=== PATIENT | male | born 1955 | race Caucasian/White ===

== ENCOUNTER 2019-10-27 17:27 | Emergency (ER) | payer SELFPAY ==
[~2019-10-27] VITALS: Ht 180.3 cm; Wt 104.0 kg
[2019-10-27 18:04] VITALS: BP 162/96
--- NOTE | 2019-10-27 18:52 | NUR ---
SPLINTER TO LEFT MIDDLE FINGER X2 HOURS. PT UNABLE TO TAKE OUT HIMSELF.
== END 2019-10-27 19:12 | disposition home or self-care (01) ==
LOC: ED 18:30
DX: S61.233A Puncture wound without foreign body of left middle finger without damage to nail, initial encounter (principal); X58.XXXA Exposure to other specified factors, initial encounter; Y93.89 Activity, other specified; Y92.098 Other place in other non-institutional residence as the place of occurrence of the external cause; Y99.8 Other external cause status
CPT/HCPCS: 99281

== ENCOUNTER 2021-04-15 01:24 | Inpatient (IN) | payer MEDICAID ==
[2021-04-15] VITALS (12 sets, daily range): BP systolic 98–139; BP diastolic 59–96
[~2021-04-15] VITALS: Ht 177.8 cm; Wt 84.2 kg
--- NOTE | 2021-04-15 01:24 | NUR ---
EVERTON EDOUARD HELD AT THIS TIME PER DR DE LA ROSA
--- NOTE | 2021-04-15 01:29 | NUR ---
PER VERBAL FROM DR DE LA ROSA PT GIVEN 2G CALCIUM IV AT THIS TIME
[2021-04-15] MEDS ORDERED: SODIUM BICARB 8.4%, 50ML SYRINGE IVPush ONE ×2 (01:30→03:00)
[2021-04-15] MEDS ORDERED: SODIUM CHLORIDE 0.9% 1,000 ML IV ONE ×2 (01:30→03:00)
[2021-04-15] MEDS ORDERED: CALCIUM CHLORIDE 10%, 10ML SYR IVPush ONE (01:30)
[2021-04-15] MEDS ORDERED: PROMETHAZINE 25 MG/ML, 1ML IM ONE (01:30)
[2021-04-15] MEDS ORDERED: DEXTROSE 50%, 50ML SYRINGE IVPush ONE (01:30)
[2021-04-15] MEDS ORDERED: SODIUM CHLORIDE FLUSH 10ML SYR IVF ONE (01:30)
[2021-04-15] MEDS ORDERED: INSULIN REGULAR 100 UNITS/ML, 3ML VIAL IVPush ONE (01:30)
[2021-04-15] MEDS ORDERED: SODIUM CHLORIDE 0.9% 1,000ML IVBOLUS ONE ×3 (01:30→03:00)
[2021-04-15] MEDS ORDERED: PROMETHAZINE 25 MG/ML, 1ML ONE (01:35)
[2021-04-15 01:43] LABS: BASOPHILS % (AUTO) 0 % (0-1); EOSINOPHILS % (AUTO) 0 % (1-7); LYMPHOCYTES % (AUTO) 5 % (22-44); MEAN CORPUSCULAR HEMOGLOBIN 32.4 pg (27.5-34.5); MEAN PLATELET VOLUME 9.8 fL (7.4-10.4); MONOCYTES % (AUTO) 3 % (2-9); NEUTROPHILS % (AUTO) 91 % (42-75); PLATELET COUNT 237 x10^3/uL (130-400); RED BLOOD COUNT 2.18 x10^6/uL (4.38-5.82); RED CELL DISTRIBUTION WIDTH 14.1 % (9.4-14.8)
--- NOTE | 2021-04-15 01:51 | NUR ---
MIJARES INSERTED STERILE TECHNIQUE MAINTAINED, URINE DRAINING AT THIS TIME. XRAY TO BEDSIDE
[2021-04-15 01:56] LABS: ALANINE AMINOTRANSFERASE 14 U/L (12-78); ALBUMIN 3.7 g/dL (3.4-5.0); ANION GAP 22 mmol/L (5-15); CALCIUM 8.8 mg/dL (8.5-10.1); CHLORIDE 106 mmol/L (98-107)
--- NOTE | 2021-04-15 01:59 | NUR ---
THIS IS A 65M BIB EMS FROM HOME FOR SOB, PT HAD SYNCOPAL EPISODE WITH EMS PRIOR TO TRANSPORT. PT FOUND TO BE JUNCTIONAL TAMI PER EMS THEN CONVERTED INTO VTACH AT A RATE OF 180-200. UPON ARRIVAL PT WAS ON AMIO GTT. ERP TO BEDSIDE UPON ARRIVAL. AMIO DC PT TO BE GIVEN 2G OF CALCIUM IV. PT HAD TWO EPISODES OF VOMITING PER ERP PT GIVEN 25MG PHENERGAN IM. PT CONNECTED TO ALL MONITORING, PT A/OX4. FAMILY NOTIFIED PER PT REQUEST.
[2021-04-15] MEDS ORDERED: DEXTROSE 50%, 50ML SYRINGE ONE (02:00)
[2021-04-15] MEDS ORDERED: SODIUM BICARB 8.4%, 50ML SYRINGE ONE ×2 (02:01→03:02)
[2021-04-15] MEDS ORDERED: INSULIN SINGLE DOSE, ER ONE (02:03)
[2021-04-15 02:07] LABS: ALKALINE PHOSPHATASE 75 U/L (45-117); BILIRUBIN,TOTAL 0.4 mg/dL (0.2-1.0); T4 (THYROXINE) 4.1 mcg/dL (4.5-12.1); TOTAL PROTEIN 8.4 g/dL (6.4-8.2); TROPONIN I 0.075 ng/mL (0.000-0.045)
--- NOTE | 2021-04-15 02:15 | NUR ---
assumed care of pt. report from Chelsy DUVAL pt here for weakness, syncope and difficulty urinating. pt reports that the last time that he was able to urinate was earlier today and it was a very little bit. pt reports that she has not had a BM in about 1 week pt is anxious and agitated. restless. pale. tachypneic. pt has a rash with scabbing to anterior and posterior trunk. mucous membranes very dry no family at bedside
[2021-04-15] MEDS ORDERED: MORPHINE SULFATE 4 MG/ML, 1ML ONE (02:16)
[2021-04-15] MEDS: MORPHINE SULFATE 4 MG/ML, 1ML IVPush PRN ×2 (02:20→05:46)
[2021-04-15] MEDS ORDERED: LIDOCAINE 2%,20 ML JEL.PF.APP MM ONE ×2 (02:27→02:30)
--- NOTE | 2021-04-15 02:33 | NUR ---
Dr Stewart has been to bedside for rectal exam
[2021-04-15 02:38] LABS: MICROSCOPIC INDICATED
--- NOTE | 2021-04-15 02:52 | NUR ---
clean dry linens have been applied. pt placed on waffle mattress for comfort. warm blankets placed for comfort pt to have central line placed. consent obtained
--- NOTE | 2021-04-15 02:59 | NUR ---
Dr Stewart at bedside for recheck. pt to have temporary dialysis cath placed
[2021-04-15] MEDS ORDERED: CEFTRIAXONE 1,000 MG in DEXTROSE 5% 50 ML IVPB ONE (03:00)
[2021-04-15] MEDS ORDERED: LIDOCAINE-MPF 1%, 5ML ONE (03:02)
--- NOTE | 2021-04-15 03:10 | NUR ---
lab at bedside to draw BC
--- NOTE | 2021-04-15 03:24 | NUR ---
Dr Stewart at bedside for temporary dilaysis cath placement
[2021-04-15] MEDS ORDERED: SODIUM BICARBONATE 8.4% 150 MEQ in DEXTROSE 5% 1,000 ML IV SCH (03:30)
--- NOTE | 2021-04-15 03:42 | NUR ---
[facility] [phone]
--- NOTE | 2021-04-15 04:02 | NUR ---
dilaysis cath placement complete. well tolerated by pt Dr Quigley has been to bedside for evaluation repeat EKG at bedside
--- NOTE | 2021-04-15 04:11 | NUR ---
bed assignment has been recieved, attempting to call report
--- NOTE | 2021-04-15 04:27 | NUR ---
report has been called to Hortensia DUVAL. awaiting STAT KUB at bedside to confirm placement of dialysis cath prior to transfer to CCU
--- NOTE | 2021-04-15 04:33 | NUR ---
rocephin to continue infusing on admit
--- NOTE | 2021-04-15 04:33 | NUR ---
x-ray at bedside
--- NOTE | 2021-04-15 04:38 | NUR ---
placement of dialysis cath verified at bedside by Dr. Stewart
[2021-04-15] MEDS ORDERED: PHARMACY MAY ADJ FOR RENAL FX MC PRN (06:00)
[2021-04-15] MEDS: SODIUM BICARBONATE 8.4% 150 MEQ in DEXTROSE 5% 1,000 ML IV SCH ×3 (06:00→18:12)
[2021-04-15] MEDS ORDERED: ACETAMINOPHEN 325 MG TABLET PO PRN (06:00)
[2021-04-15] MEDS ORDERED: LABETALOL 5MG/ML, 20ML IVPush PRN (06:00)
[2021-04-15] MEDS ORDERED: morphine SULFATE 10 MG/ML, 1ML IVPush PRN (06:00)
[2021-04-15 07:34] LABS: CREATINE KINASE, TOTAL 319 U/L (39-308); TROPONIN I 0.096 ng/mL (0.000-0.045)
[2021-04-15 08:10] LABS: CHLORIDE,URINE RANDOM 72 mmol/L; POTASSIUM,URINE RANDOM 26 mmol/L; SODIUM,URINE RANDOM 74 mmol/L
[2021-04-15] MEDS: CEFTRIAXONE 2 GM in DEXTROSE 5% 50 ML IVPB SCH (08:15)
[2021-04-15] MEDS: SENNA/DOCUSATE TABLET PO SCH (09:00)
[2021-04-15 12:27] LABS: ANION GAP 18 mmol/L (5-15); CALCIUM 7.1 mg/dL (8.5-10.1); CHLORIDE 99 mmol/L (98-107)
[2021-04-15 12:31] LABS: MEAN CORPUSCULAR HEMOGLOBIN 31.5 pg (27.5-34.5); MEAN CORPUSCULAR HGB CONC 34.2 g/dL (33.2-36.2); MEAN PLATELET VOLUME 9.4 fL (7.4-10.4); PLATELET COUNT 191 x10^3/uL (130-400); RED BLOOD COUNT 1.76 x10^6/uL (4.38-5.82); RED CELL DISTRIBUTION WIDTH 11.9 % (9.4-14.8)
[2021-04-15] MEDS ORDERED: SODIUM CHLORIDE 0.9% 250 ML IV ONE (13:00)
[2021-04-15] MEDS ORDERED: LIDOCAINE 1%, 20ML ONE (13:50)
[2021-04-15] MEDS ORDERED: ONDANSETRON 2MG/ML, 2ML ONE (14:35)
[2021-04-15] MEDS ORDERED: FLUMAZENIL 0.1 MG/1 ML, 5ML ONE (14:55)
[2021-04-15] MEDS ORDERED: NALOXONE 1 MG/ML, 2ML ONE (14:55)
[2021-04-15] MEDS ORDERED: MIDAZOLAM 1 MG/ML, 5ML ONE (14:55)
[2021-04-15] MEDS ORDERED: FENTANYL PF 100 MCG/2ML ONE (14:55)
[2021-04-15] MEDS: ONDANSETRON 2MG/ML, 2ML IVPush PRN (20:19)
[2021-04-16 01:53] VITALS: BP 128/73
[2021-04-16 01:59] VITALS: BP 131/65
[2021-04-16] MEDS: ONDANSETRON 2MG/ML, 2ML IVPush PRN ×2 (02:44→15:44)
[2021-04-16] MEDS: SODIUM BICARBONATE 8.4% 150 MEQ in DEXTROSE 5% 1,000 ML IV SCH (02:44)
[2021-04-16 08:09] LABS: ALBUMIN 2.9 g/dL (3.4-5.0); ANION GAP 12 mmol/L (5-15); BASOPHILS % (AUTO) 0 % (0-1); CHLORIDE 95 mmol/L (98-107); EOSINOPHILS % (AUTO) 0 % (1-7); LYMPHOCYTES % (AUTO) 5 % (22-44); MEAN CORPUSCULAR HEMOGLOBIN 31.6 pg (27.5-34.5); MEAN CORPUSCULAR HGB CONC 35.3 g/dL (33.2-36.2); MEAN PLATELET VOLUME 9.5 fL (7.4-10.4); MONOCYTES % (AUTO) 9 % (2-9); NEUTROPHILS % (AUTO) 86 % (42-75); PLATELET COUNT 173 x10^3/uL (130-400); RED BLOOD COUNT 2.44 x10^6/uL (4.38-5.82); RED CELL DISTRIBUTION WIDTH 13.4 % (9.4-14.8)
[2021-04-16] MEDS: CEFTRIAXONE 2 GM in DEXTROSE 5% 50 ML IVPB SCH (08:09)
[2021-04-16] MEDS: SENNA/DOCUSATE TABLET PO SCH (08:09)
[2021-04-16 08:12] LABS: ALANINE AMINOTRANSFERASE 24 U/L (12-78); ALKALINE PHOSPHATASE 131 U/L (45-117); BILIRUBIN,TOTAL 0.8 mg/dL (0.2-1.0); TOTAL PROTEIN 6.2 g/dL (6.4-8.2)
[2021-04-16 08:21] LABS: CALCIUM 5.6 mg/dL (8.5-10.1)
[2021-04-16 10:22] VITALS: BP 136/70
[2021-04-16] MEDS ORDERED: MAGNESIUM SULFATE PMX 2GM/50ML 50 ML IV ONE (12:30)
[2021-04-16] MEDS: CALCITRIOL 0.25 MCG CAPSULE PO SCH (12:54)
[2021-04-16] MEDS: ERGOCALCIFEROL 50,000 UNIT CAPSULE PO SCH (12:54)
[2021-04-16] MEDS: POTASSIUM CHLORIDE 20 MEQ in SODIUM CHLORIDE 0.9% 250 ML IV SCH (13:44)
[2021-04-16 17:15] VITALS: BP 145/88
[2021-04-16 19:45] VITALS: BP 166/87
[2021-04-17 01:04] VITALS: BP 163/87
[2021-04-17] MEDS: POTASSIUM CHLORIDE 20 MEQ in SODIUM CHLORIDE 0.9% 250 ML IV SCH (01:06)
[2021-04-17 05:07] LABS: BASOPHILS % (AUTO) 0 % (0-1); EOSINOPHILS % (AUTO) 1 % (1-7); LYMPHOCYTES % (AUTO) 5 % (22-44); MEAN PLATELET VOLUME 9.8 fL (7.4-10.4); MONOCYTES % (AUTO) 12 % (2-9); NEUTROPHILS % (AUTO) 81 % (42-75); PLATELET COUNT 156 x10^3/uL (130-400); RED CELL DISTRIBUTION WIDTH 13.4 % (9.4-14.8)
[2021-04-17 05:10] LABS: ALBUMIN 2.8 g/dL (3.4-5.0); ANION GAP 5 mmol/L (5-15); CALCIUM 6.7 mg/dL (8.5-10.1); CHLORIDE 107 mmol/L (98-107); CREATININE 9.65 mg/dL (0.7-1.3)
[2021-04-17] MEDS: CALCITRIOL 0.25 MCG CAPSULE PO SCH (07:46)
[2021-04-17] MEDS: CEFTRIAXONE 2 GM in DEXTROSE 5% 50 ML IVPB SCH (07:47)
[2021-04-17] MEDS: POLYETHYLENE GLYCOL 17 GM PACKET PO PRN (07:47)
[2021-04-17] MEDS: SENNA/DOCUSATE TABLET PO SCH (07:47)
[2021-04-17 08:17] VITALS: BP 164/84
[2021-04-17 15:14] VITALS: BP 165/87
[2021-04-17 19:34] VITALS: BP 168/83
[2021-04-18 01:59] VITALS: BP 154/78
[2021-04-18 06:22] LABS: BASOPHILS % (AUTO) 0 % (0-1); EOSINOPHILS % (AUTO) 7 % (1-7); LYMPHOCYTES % (AUTO) 8 % (22-44); MEAN CORPUSCULAR HEMOGLOBIN 31.3 pg (27.5-34.5); MEAN CORPUSCULAR HGB CONC 33.8 g/dL (33.2-36.2); MEAN PLATELET VOLUME 10.1 fL (7.4-10.4); MONOCYTES % (AUTO) 11 % (2-9); NEUTROPHILS % (AUTO) 74 % (42-75); PLATELET COUNT 157 x10^3/uL (130-400); RED BLOOD COUNT 2.75 x10^6/uL (4.38-5.82); RED CELL DISTRIBUTION WIDTH 13.2 % (9.4-14.8)
[2021-04-18 06:30] LABS: ANION GAP 7 mmol/L (5-15); CHLORIDE 104 mmol/L (98-107)
[2021-04-18 07:50] VITALS: BP 165/86
[2021-04-18] MEDS: POLYETHYLENE GLYCOL 17 GM PACKET PO PRN (12:01)
[2021-04-18] MEDS: SENNA/DOCUSATE TABLET PO SCH (12:01)
[2021-04-18] MEDS: CALCITRIOL 0.25 MCG CAPSULE PO SCH (12:01)
[2021-04-18] MEDS: CEFTRIAXONE 2 GM in DEXTROSE 5% 50 ML IVPB SCH (12:04)
[2021-04-18 12:58] VITALS: BP 151/87
[2021-04-18] MEDS ORDERED: PROMETHAZINE 25 MG/ML, 1ML IM PRN (13:30)
[2021-04-18] MEDS: MECLIZINE 25 MG TABLET PO SCH ×2 (16:32→21:48)
[2021-04-18 19:35] VITALS: BP 156/84
[2021-04-19 01:18] VITALS: BP 146/78
[2021-04-19 05:13] LABS: ALBUMIN 2.9 g/dL (3.4-5.0); ANION GAP 7 mmol/L (5-15); CALCIUM 7.2 mg/dL (8.5-10.1); CHLORIDE 105 mmol/L (98-107); CREATININE 9.53 mg/dL (0.7-1.3)
[2021-04-19 07:57] VITALS: BP 153/86
[2021-04-19] MEDS: MECLIZINE 25 MG TABLET PO SCH ×3 (08:21→20:02)
[2021-04-19] MEDS: POLYETHYLENE GLYCOL 17 GM PACKET PO PRN (08:21)
[2021-04-19] MEDS: SENNA/DOCUSATE TABLET PO SCH (08:21)
[2021-04-19] MEDS: CALCITRIOL 0.25 MCG CAPSULE PO SCH (08:21)
[2021-04-19] MEDS: CEFTRIAXONE 2 GM in DEXTROSE 5% 50 ML IVPB SCH (12:18)
[2021-04-19 13:45] VITALS: BP 126/86
[2021-04-19] MEDS: CALCIUM ACETATE 667 MG CAPSULE PO SCH ×2 (16:35→20:02)
[2021-04-19 19:44] VITALS: BP 117/78
[2021-04-20 01:20] VITALS: BP 146/82
[2021-04-20 05:12] LABS: BASOPHILS % (AUTO) 1 % (0-1); EOSINOPHILS % (AUTO) 14 % (1-7); LYMPHOCYTES % (AUTO) 17 % (22-44); MEAN CORPUSCULAR HEMOGLOBIN 31.3 pg (27.5-34.5); MEAN CORPUSCULAR HGB CONC 33.6 g/dL (33.2-36.2); MONOCYTES % (AUTO) 9 % (2-9); NEUTROPHILS % (AUTO) 60 % (42-75); PLATELET COUNT 170 x10^3/uL (130-400); RED BLOOD COUNT 2.83 x10^6/uL (4.38-5.82); RED CELL DISTRIBUTION WIDTH 12.7 % (9.4-14.8)
[2021-04-20 05:21] LABS: CHLORIDE 103 mmol/L (98-107)
[2021-04-20 05:27] LABS: ANION GAP 12 mmol/L (5-15); CALCIUM 7.5 mg/dL (8.5-10.1)
[2021-04-20] MEDS: BISACODYL 10 MG SUPP PR PRN (05:28)
[2021-04-20] MEDS: POLYETHYLENE GLYCOL 17 GM PACKET PO PRN (05:28)
[2021-04-20 08:05] VITALS: BP 132/84
[2021-04-20] MEDS: SENNA/DOCUSATE TABLET PO SCH (09:00)
[2021-04-20] MEDS: CALCIUM ACETATE 667 MG CAPSULE PO SCH ×3 (09:43→21:16)
[2021-04-20] MEDS: MECLIZINE 25 MG TABLET PO SCH ×3 (09:43→21:16)
[2021-04-20] MEDS: CALCITRIOL 0.25 MCG CAPSULE PO SCH (09:43)
[2021-04-20 19:06] VITALS: BP 134/77
[2021-04-21 00:21] VITALS: BP 131/82
[2021-04-21] MEDS ORDERED: CEFTRIAXONE 2 GM in DEXTROSE 5% 50 ML IVPB SCH (06:00)
[2021-04-21] MEDS: CALCIUM ACETATE 667 MG CAPSULE PO SCH ×3 (09:16→22:46)
[2021-04-21] MEDS: CALCITRIOL 0.25 MCG CAPSULE PO SCH (09:16)
[2021-04-21] MEDS: SENNA/DOCUSATE TABLET PO SCH (09:16)
[2021-04-21] MEDS: MECLIZINE 25 MG TABLET PO SCH ×3 (09:17→22:46)
[2021-04-21 09:55] VITALS: BP 113/74
[2021-04-21] MEDS ORDERED: MIDAZOLAM 1 MG/ML, 5ML ONE (13:14)
[2021-04-21] MEDS ORDERED: FLUMAZENIL 0.1 MG/1 ML, 5ML ONE (13:14)
[2021-04-21] MEDS ORDERED: NALOXONE 1 MG/ML, 2ML ONE (13:14)
[2021-04-21] MEDS ORDERED: FENTANYL PF 100 MCG/2ML ONE (13:14)
[2021-04-21] MEDS ORDERED: LIDOCAINE 1%, 20ML ONE (13:42)
[2021-04-21 15:49] VITALS: BP 123/75
[2021-04-21 19:50] VITALS: BP 116/79
[2021-04-22 00:57] VITALS: BP 117/72
[2021-04-22 06:16] LABS: BASOPHILS % (AUTO) 1 % (0-1); EOSINOPHILS % (AUTO) 11 % (1-7); LYMPHOCYTES % (AUTO) 10 % (22-44); MEAN CORPUSCULAR HGB CONC 34.6 g/dL (33.2-36.2); MEAN PLATELET VOLUME 10.2 fL (7.4-10.4); MONOCYTES % (AUTO) 8 % (2-9); NEUTROPHILS % (AUTO) 71 % (42-75); PLATELET COUNT 168 x10^3/uL (130-400); RED BLOOD COUNT 2.58 x10^6/uL (4.38-5.82); RED CELL DISTRIBUTION WIDTH 12.6 % (9.4-14.8)
[2021-04-22 06:25] LABS: CHLORIDE 105 mmol/L (98-107)
[2021-04-22 06:30] LABS: ALANINE AMINOTRANSFERASE 34 U/L (12-78); ALBUMIN 2.8 g/dL (3.4-5.0); ALKALINE PHOSPHATASE 89 U/L (45-117); ANION GAP 6 mmol/L (5-15); BILIRUBIN,TOTAL 0.3 mg/dL (0.2-1.0); CALCIUM 8.1 mg/dL (8.5-10.1); CREATININE 6.53 mg/dL (0.7-1.3); TOTAL PROTEIN 6.4 g/dL (6.4-8.2)
[2021-04-22 07:46] VITALS: BP 120/76
[2021-04-22] MEDS: CALCITRIOL 0.25 MCG CAPSULE PO SCH (09:47)
[2021-04-22] MEDS: CALCIUM ACETATE 667 MG CAPSULE PO SCH ×2 (09:47→18:11)
[2021-04-22] MEDS: MECLIZINE 25 MG TABLET PO SCH ×3 (09:47→21:01)
[2021-04-22] MEDS: SENNA/DOCUSATE TABLET PO SCH (09:48)
[2021-04-22 14:45] VITALS: BP 111/72
[2021-04-22 19:51] VITALS: BP 99/64
[2021-04-23 00:47] VITALS: BP 109/69
[2021-04-23 06:55] LABS: ALBUMIN 2.9 g/dL (3.4-5.0); ANION GAP 8 mmol/L (5-15); CHLORIDE 103 mmol/L (98-107)
[2021-04-23 06:56] LABS: CREATININE 6.12 mg/dL (0.7-1.3)
[2021-04-23 07:02] VITALS: BP 109/69
[2021-04-23] MEDS: CALCIUM ACETATE 667 MG CAPSULE PO SCH ×3 (08:00→16:49)
[2021-04-23] MEDS ORDERED: CEFAZOLIN 1,000 MG ONE (08:25)
[2021-04-23] MEDS ORDERED: PROPOFOL 10 MG/ML, 20ML ONE (08:25)
[2021-04-23] MEDS ORDERED: ONDANSETRON 2MG/ML, 2ML ONE (08:25)
[2021-04-23] MEDS ORDERED: VASOPRESSIN 20 UNIT/ML, 1ML ONE (08:25)
[2021-04-23] MEDS ORDERED: ACETAMINOPHEN 325 MG TABLET PO PRN (08:30)
[2021-04-23] MEDS ORDERED: HYDROmorphone 1 MG/ML, 1ML INJ IVPush PRN (08:30)
[2021-04-23] MEDS ORDERED: MEPERIDINE/PF 25MG/0.5ML IVPush PRN (08:30)
[2021-04-23] MEDS ORDERED: LABETALOL 5MG/ML, 20ML IV PRN (08:30)
[2021-04-23] MEDS ORDERED: FENTANYL PF 100 MCG/2ML IV PRN (08:30)
[2021-04-23] MEDS ORDERED: ONDANSETRON 2MG/ML, 2ML IVPush PRN (08:30)
[2021-04-23] MEDS ORDERED: HALOPERIDOL 5 MG/ML IV PRN (08:30)
[2021-04-23] MEDS ORDERED: PROMETHAZINE 25 MG/ML, 1ML IVPush PRN (08:30)
[2021-04-23] MEDS ORDERED: METHOCARBAMOL 1,000 MG in DEXTROSE 5% 100 ML IV PRN (08:30)
[2021-04-23] MEDS ORDERED: hydrALAzine 20 MG/ML, 1ML IV PRN (08:30)
[2021-04-23] MEDS ORDERED: OXYcodone 5 MG/5 ML ORAL.SOL UDC PO PRN (08:30)
[2021-04-23] MEDS ORDERED: LORazepam 2 MG/ML, 1ML IVPush PRN (08:30)
[2021-04-23] MEDS ORDERED: EPHEDRINE 50 MG/ML, 1ML IVPush PRN (08:30)
[2021-04-23] MEDS ORDERED: OMNIPAQUE 350 MG/ML, 50 ML BOTTLE ONE (08:40)
[2021-04-23] MEDS ORDERED: FENTANYL PF 250 MCG/5ML ONE (08:49)
[2021-04-23] MEDS: CALCITRIOL 0.25 MCG CAPSULE PO SCH (11:39)
[2021-04-23] MEDS: MECLIZINE 25 MG TABLET PO SCH ×3 (11:39→20:21)
[2021-04-23] MEDS: SENNA/DOCUSATE TABLET PO SCH (11:40)
[2021-04-23] MEDS: ERGOCALCIFEROL 50,000 UNIT CAPSULE PO SCH (11:40)
[2021-04-23 13:15] VITALS: BP 100/65
[2021-04-23 20:44] VITALS: BP 117/70
[2021-04-24 00:39] VITALS: BP 119/64
[2021-04-24 06:08] LABS: BASOPHILS % (AUTO) 1 % (0-1); EOSINOPHILS % (AUTO) 10 % (1-7); LYMPHOCYTES % (AUTO) 10 % (22-44); MEAN CORPUSCULAR HGB CONC 34.3 g/dL (33.2-36.2); MEAN PLATELET VOLUME 9.9 fL (7.4-10.4); MONOCYTES % (AUTO) 10 % (2-9); NEUTROPHILS % (AUTO) 69 % (42-75); PLATELET COUNT 211 x10^3/uL (130-400); RED BLOOD COUNT 2.46 x10^6/uL (4.38-5.82); RED CELL DISTRIBUTION WIDTH 12.9 % (9.4-14.8)
[2021-04-24 06:18] LABS: CALCIUM 7.9 mg/dL (8.5-10.1); CHLORIDE 107 mmol/L (98-107)
[2021-04-24 06:25] LABS: ALANINE AMINOTRANSFERASE 34 U/L (12-78); ALBUMIN 2.8 g/dL (3.4-5.0); ALKALINE PHOSPHATASE 90 U/L (45-117); ANION GAP 8 mmol/L (5-15); BILIRUBIN,TOTAL 0.4 mg/dL (0.2-1.0); CREATININE 8.02 mg/dL (0.7-1.3); TOTAL PROTEIN 6.3 g/dL (6.4-8.2)
[2021-04-24 07:50] VITALS: BP 106/64
[2021-04-24] MEDS: CALCIUM ACETATE 667 MG CAPSULE PO SCH ×3 (08:07→16:45)
[2021-04-24] MEDS: SENNA/DOCUSATE TABLET PO SCH (08:07)
[2021-04-24] MEDS: CALCITRIOL 0.25 MCG CAPSULE PO SCH (08:08)
[2021-04-24] MEDS: MECLIZINE 25 MG TABLET PO SCH ×3 (08:08→21:56)
[2021-04-24 13:40] VITALS: BP 101/65
[2021-04-24 19:18] VITALS: BP 101/65
[2021-04-25] VITALS (11 sets, daily range): BP systolic 93–108; BP diastolic 58–73
[2021-04-25 05:44] LABS: BASOPHILS % (AUTO) 1 % (0-1); EOSINOPHILS % (AUTO) 11 % (1-7); LYMPHOCYTES % (AUTO) 11 % (22-44); MEAN CORPUSCULAR HGB CONC 34.2 g/dL (33.2-36.2); MEAN PLATELET VOLUME 9.6 fL (7.4-10.4); MONOCYTES % (AUTO) 12 % (2-9); NEUTROPHILS % (AUTO) 65 % (42-75); PLATELET COUNT 224 x10^3/uL (130-400); RED CELL DISTRIBUTION WIDTH 13.4 % (9.4-14.8)
[2021-04-25] MEDS: MECLIZINE 25 MG TABLET PO SCH ×3 (08:51→20:32)
[2021-04-25] MEDS: CALCITRIOL 0.25 MCG CAPSULE PO SCH (08:52)
[2021-04-25] MEDS: CALCIUM ACETATE 667 MG CAPSULE PO SCH ×3 (08:52→16:40)
[2021-04-25] MEDS: SENNA/DOCUSATE TABLET PO SCH ×2 (08:52→16:40)
[2021-04-25] MEDS: POLYETHYLENE GLYCOL 17 GM PACKET PO PRN (16:40)
[2021-04-26 00:26] VITALS: BP_SYST 109; BP_SYST 113; BP_DIAS 63; BP_DIAS 69
[2021-04-26 08:12] VITALS: BP 109/76
[2021-04-26] MEDS: CALCIUM ACETATE 667 MG CAPSULE PO SCH ×3 (09:40→16:42)
[2021-04-26] MEDS: CALCITRIOL 0.25 MCG CAPSULE PO SCH (09:40)
[2021-04-26] MEDS: MECLIZINE 25 MG TABLET PO SCH ×3 (09:41→21:13)
[2021-04-26] MEDS: SENNA/DOCUSATE TABLET PO SCH (09:41)
[2021-04-26 11:37] VITALS: BP 102/69
[2021-04-26] MEDS ORDERED: SODIUM CHLORIDE 0.9%, 250ML IVBOLUS ONE (12:30)
[2021-04-26] MEDS ORDERED: ALBUMIN HUMAN 25% 100 ML IV ONE (12:30)
[2021-04-26 13:28] LABS: BASOPHILS % (AUTO) 0 % (0-1); EOSINOPHILS % (AUTO) 8 % (1-7); LYMPHOCYTES % (AUTO) 7 % (22-44); MEAN CORPUSCULAR HEMOGLOBIN 31.4 pg (27.5-34.5); MEAN CORPUSCULAR HGB CONC 33.7 g/dL (33.2-36.2); MEAN PLATELET VOLUME 9.4 fL (7.4-10.4); MONOCYTES % (AUTO) 10 % (2-9); NEUTROPHILS % (AUTO) 75 % (42-75); PLATELET COUNT 241 x10^3/uL (130-400); RED BLOOD COUNT 2.82 x10^6/uL (4.38-5.82); RED CELL DISTRIBUTION WIDTH 13.6 % (9.4-14.8)
[2021-04-26 15:23] VITALS: BP 103/64
[2021-04-26 20:16] VITALS: BP 109/64
[2021-04-27 01:44] VITALS: BP 110/58
[2021-04-27 06:16] LABS: ALBUMIN 2.8 g/dL (3.4-5.0); ANION GAP 8 mmol/L (5-15); CALCIUM 7.9 mg/dL (8.5-10.1); CHLORIDE 104 mmol/L (98-107)
[2021-04-27 06:17] LABS: CREATININE 8.78 mg/dL (0.7-1.3)
[2021-04-27 06:58] VITALS: BP 104/68
[2021-04-27] MEDS: CALCIUM ACETATE 667 MG CAPSULE PO SCH ×3 (08:21→16:20)
[2021-04-27] MEDS: MECLIZINE 25 MG TABLET PO SCH ×3 (08:21→20:00)
[2021-04-27] MEDS: CALCITRIOL 0.25 MCG CAPSULE PO SCH (08:21)
[2021-04-27] MEDS: SENNA/DOCUSATE TABLET PO SCH (08:22)
[2021-04-27 14:19] VITALS: BP 97/60
[2021-04-27 18:33] VITALS: BP 92/59
[2021-04-27 20:00] VITALS: BP 106/59
[2021-04-28 02:13] VITALS: BP 99/63
[2021-04-28 05:24] LABS: BASOPHILS % (AUTO) 1 % (0-1); EOSINOPHILS % (AUTO) 13 % (1-7); LYMPHOCYTES % (AUTO) 14 % (22-44); MEAN CORPUSCULAR HGB CONC 34.9 g/dL (33.2-36.2); MEAN PLATELET VOLUME 8.8 fL (7.4-10.4); MONOCYTES % (AUTO) 9 % (2-9); NEUTROPHILS % (AUTO) 64 % (42-75); PLATELET COUNT 215 x10^3/uL (130-400); RED BLOOD COUNT 2.65 x10^6/uL (4.38-5.82); RED CELL DISTRIBUTION WIDTH 13.4 % (9.4-14.8)
[2021-04-28 05:40] LABS: CHLORIDE 103 mmol/L (98-107)
[2021-04-28 05:50] LABS: ALBUMIN 2.7 g/dL (3.4-5.0); ANION GAP 7 mmol/L (5-15); CALCIUM 8.3 mg/dL (8.5-10.1); CREATININE 7.16 mg/dL (0.7-1.3)
[2021-04-28 06:49] VITALS: BP 105/67
[2021-04-28] MEDS: SENNA/DOCUSATE TABLET PO SCH (08:39)
[2021-04-28] MEDS: POLYETHYLENE GLYCOL 17 GM PACKET PO PRN (08:39)
[2021-04-28] MEDS: CALCIUM ACETATE 667 MG CAPSULE PO SCH ×3 (08:40→16:31)
[2021-04-28] MEDS: MECLIZINE 25 MG TABLET PO SCH ×3 (08:40→20:44)
[2021-04-28] MEDS: CALCITRIOL 0.25 MCG CAPSULE PO SCH (08:40)
[2021-04-28 12:58] VITALS: BP 105/63
[2021-04-28] MEDS ORDERED: LIDOCAINE 1%, 20ML ONE (13:25)
[2021-04-28 14:09] VITALS: BP 108/67
[2021-04-28 19:49] VITALS: BP 99/62
[2021-04-29] VITALS (7 sets, daily range): BP systolic 106–118; BP diastolic 46–76
[2021-04-29 07:31] LABS: BASOPHILS % (AUTO) 1 % (0-1); EOSINOPHILS % (AUTO) 16 % (1-7); LYMPHOCYTES % (AUTO) 15 % (22-44); MEAN CORPUSCULAR HEMOGLOBIN 31.7 pg (27.5-34.5); MEAN CORPUSCULAR HGB CONC 34.4 g/dL (33.2-36.2); MEAN PLATELET VOLUME 8.5 fL (7.4-10.4); MONOCYTES % (AUTO) 8 % (2-9); NEUTROPHILS % (AUTO) 60 % (42-75); PLATELET COUNT 227 x10^3/uL (130-400); RED BLOOD COUNT 2.63 x10^6/uL (4.38-5.82); RED CELL DISTRIBUTION WIDTH 13.3 % (9.4-14.8)
[2021-04-29 07:42] LABS: ALBUMIN 2.8 g/dL (3.4-5.0); ANION GAP 8 mmol/L (5-15); CALCIUM 8.2 mg/dL (8.5-10.1); CHLORIDE 105 mmol/L (98-107); CREATININE 9.22 mg/dL (0.7-1.3)
[2021-04-29] MEDS: SENNA/DOCUSATE TABLET PO SCH (09:04)
[2021-04-29] MEDS: CALCIUM ACETATE 667 MG CAPSULE PO SCH ×3 (09:04→16:41)
[2021-04-29] MEDS: MECLIZINE 25 MG TABLET PO SCH ×3 (09:05→20:40)
[2021-04-29] MEDS: CALCITRIOL 0.25 MCG CAPSULE PO SCH (09:05)
[2021-04-29] MEDS: POLYETHYLENE GLYCOL 17 GM PACKET PO PRN (09:05)
[2021-04-30 01:25] VITALS: BP 108/67
[2021-04-30 05:42] LABS: BASOPHILS % (AUTO) 1 % (0-1); EOSINOPHILS % (AUTO) 18 % (1-7); LYMPHOCYTES % (AUTO) 12 % (22-44); MEAN CORPUSCULAR HEMOGLOBIN 31.4 pg (27.5-34.5); MEAN CORPUSCULAR HGB CONC 34.6 g/dL (33.2-36.2); MEAN PLATELET VOLUME 9.2 fL (7.4-10.4); MONOCYTES % (AUTO) 8 % (2-9); NEUTROPHILS % (AUTO) 60 % (42-75); PLATELET COUNT 166 x10^3/uL (130-400); RED BLOOD COUNT 3.07 x10^6/uL (4.38-5.82); RED CELL DISTRIBUTION WIDTH 13.6 % (9.4-14.8)
[2021-04-30 05:55] LABS: ALBUMIN 2.9 g/dL (3.4-5.0); ANION GAP 7 mmol/L (5-15); CALCIUM 8.2 mg/dL (8.5-10.1); CHLORIDE 104 mmol/L (98-107)
[2021-04-30 05:56] LABS: CREATININE 7.54 mg/dL (0.7-1.3)
[2021-04-30 07:35] VITALS: BP 117/79
[2021-04-30] MEDS: SENNA/DOCUSATE TABLET PO SCH (08:31)
[2021-04-30] MEDS: CALCITRIOL 0.25 MCG CAPSULE PO SCH (08:31)
[2021-04-30] MEDS: CALCIUM ACETATE 667 MG CAPSULE PO SCH ×3 (08:32→16:55)
[2021-04-30] MEDS: MECLIZINE 25 MG TABLET PO SCH ×3 (08:33→20:04)
[2021-04-30] MEDS: ERGOCALCIFEROL 50,000 UNIT CAPSULE PO SCH (12:15)
[2021-04-30 13:47] VITALS: BP 117/74
[2021-04-30 21:16] VITALS: BP 108/67
[2021-05-01 00:54] VITALS: BP 129/65
[2021-05-01 06:13] LABS: ALBUMIN 2.8 g/dL (3.4-5.0); ANION GAP 10 mmol/L (5-15); CALCIUM 8.3 mg/dL (8.5-10.1); CHLORIDE 108 mmol/L (98-107); CREATININE 8.91 mg/dL (0.7-1.3)
[2021-05-01] MEDS: MECLIZINE 25 MG TABLET PO SCH ×3 (08:29→20:12)
[2021-05-01] MEDS: CALCITRIOL 0.25 MCG CAPSULE PO SCH (08:29)
[2021-05-01] MEDS: SENNA/DOCUSATE TABLET PO SCH (08:30)
[2021-05-01] MEDS: CALCIUM ACETATE 667 MG CAPSULE PO SCH ×3 (08:30→16:24)
[2021-05-01] MEDS: POLYETHYLENE GLYCOL 17 GM PACKET PO PRN (08:30)
[2021-05-01 08:43] VITALS: BP 114/76
[2021-05-01 14:53] VITALS: BP 108/69
[2021-05-01 19:51] VITALS: BP 107/71
[2021-05-02 00:53] VITALS: BP 110/76
[2021-05-02 06:17] LABS: BASOPHILS % (AUTO) 1 % (0-1); EOSINOPHILS % (AUTO) 20 % (1-7); LYMPHOCYTES % (AUTO) 12 % (22-44); MEAN CORPUSCULAR HEMOGLOBIN 31.7 pg (27.5-34.5); MEAN CORPUSCULAR HGB CONC 34.6 g/dL (33.2-36.2); MEAN PLATELET VOLUME 9.2 fL (7.4-10.4); MONOCYTES % (AUTO) 8 % (2-9); NEUTROPHILS % (AUTO) 60 % (42-75); PLATELET COUNT 184 x10^3/uL (130-400); RED BLOOD COUNT 2.98 x10^6/uL (4.38-5.82); RED CELL DISTRIBUTION WIDTH 13.3 % (9.4-14.8)
[2021-05-02 06:27] LABS: ALBUMIN 2.9 g/dL (3.4-5.0); ANION GAP 10 mmol/L (5-15); CALCIUM 8.1 mg/dL (8.5-10.1); CHLORIDE 107 mmol/L (98-107)
[2021-05-02 07:32] VITALS: BP 116/72
[2021-05-02] MEDS: POLYETHYLENE GLYCOL 17 GM PACKET PO PRN (09:21)
[2021-05-02] MEDS: MECLIZINE 25 MG TABLET PO SCH ×3 (09:21→21:00)
[2021-05-02] MEDS: CALCIUM ACETATE 667 MG CAPSULE PO SCH ×3 (09:21→16:48)
[2021-05-02] MEDS: CALCITRIOL 0.25 MCG CAPSULE PO SCH (09:21)
[2021-05-02] MEDS: SENNA/DOCUSATE TABLET PO SCH (09:21)
[2021-05-02 14:20] VITALS: BP 108/60
[2021-05-02 19:19] VITALS: BP 111/73
[2021-05-03 04:39] VITALS: BP 122/72
[2021-05-03] MEDS: BISACODYL 10 MG SUPP PR PRN (06:28)
[2021-05-03 08:54] VITALS: BP 110/79
[2021-05-03] MEDS: CALCIUM ACETATE 667 MG CAPSULE PO SCH ×3 (10:20→17:32)
[2021-05-03] MEDS: CALCITRIOL 0.25 MCG CAPSULE PO SCH (10:21)
[2021-05-03] MEDS: MECLIZINE 25 MG TABLET PO SCH (10:21)
[2021-05-03] MEDS: SENNA/DOCUSATE TABLET PO SCH (10:21)
[2021-05-03] MEDS ORDERED: MECLIZINE 25 MG TABLET PO PRN (15:00)
[2021-05-03 19:42] VITALS: BP 120/66
[2021-05-04 00:51] VITALS: BP 108/74
[2021-05-04 05:48] LABS: BASOPHILS % (AUTO) 1 % (0-1); EOSINOPHILS % (AUTO) 16 % (1-7); LYMPHOCYTES % (AUTO) 18 % (22-44); MEAN CORPUSCULAR HEMOGLOBIN 31.7 pg (27.5-34.5); MEAN CORPUSCULAR HGB CONC 34.9 g/dL (33.2-36.2); MEAN PLATELET VOLUME 8.2 fL (7.4-10.4); MONOCYTES % (AUTO) 12 % (2-9); NEUTROPHILS % (AUTO) 53 % (42-75); PLATELET COUNT 166 x10^3/uL (130-400); RED BLOOD COUNT 2.88 x10^6/uL (4.38-5.82); RED CELL DISTRIBUTION WIDTH 13.3 % (9.4-14.8)
[2021-05-04 06:02] LABS: ALBUMIN 2.7 g/dL (3.4-5.0); ANION GAP 6 mmol/L (5-15); CALCIUM 8.3 mg/dL (8.5-10.1); CHLORIDE 106 mmol/L (98-107)
[2021-05-04 06:04] LABS: CREATININE 7.95 mg/dL (0.7-1.3)
[2021-05-04 07:52] VITALS: BP 105/69
[2021-05-04] MEDS: CALCITRIOL 0.25 MCG CAPSULE PO SCH (10:05)
[2021-05-04] MEDS: CALCIUM ACETATE 667 MG CAPSULE PO SCH ×3 (10:05→17:32)
[2021-05-04] MEDS: SENNA/DOCUSATE TABLET PO SCH (10:05)
[2021-05-04 15:36] VITALS: BP 114/67
[2021-05-04 19:50] VITALS: BP 105/65
[2021-05-05 00:55] VITALS: BP 120/70
[2021-05-05 05:54] LABS: BASOPHILS % (AUTO) 1 % (0-1); EOSINOPHILS % (AUTO) 14 % (1-7); LYMPHOCYTES % (AUTO) 17 % (22-44); MEAN CORPUSCULAR HEMOGLOBIN 31.6 pg (27.5-34.5); MEAN CORPUSCULAR HGB CONC 34.7 g/dL (33.2-36.2); MEAN PLATELET VOLUME 8.6 fL (7.4-10.4); MONOCYTES % (AUTO) 11 % (2-9); NEUTROPHILS % (AUTO) 57 % (42-75); PLATELET COUNT 166 x10^3/uL (130-400); RED BLOOD COUNT 2.92 x10^6/uL (4.38-5.82); RED CELL DISTRIBUTION WIDTH 13.5 % (9.4-14.8)
[2021-05-05 06:03] LABS: ALBUMIN 2.8 g/dL (3.4-5.0); ANION GAP 8 mmol/L (5-15); CALCIUM 8.3 mg/dL (8.5-10.1); CHLORIDE 103 mmol/L (98-107); CREATININE 6.44 mg/dL (0.7-1.3)
[2021-05-05 07:49] VITALS: BP 121/76
[2021-05-05] MEDS: CALCIUM ACETATE 667 MG CAPSULE PO SCH ×3 (09:42→17:30)
[2021-05-05] MEDS: SENNA/DOCUSATE TABLET PO SCH (09:42)
[2021-05-05] MEDS: CALCITRIOL 0.25 MCG CAPSULE PO SCH (09:42)
[2021-05-05 13:40] VITALS: BP 121/70
[2021-05-05 19:27] VITALS: BP 122/60
[2021-05-06 01:42] VITALS: BP 112/64
[2021-05-06 07:25] VITALS: BP 113/73
[2021-05-06] MEDS: CALCITRIOL 0.25 MCG CAPSULE PO SCH (09:11)
[2021-05-06] MEDS: CALCIUM ACETATE 667 MG CAPSULE PO SCH ×2 (09:11→12:00)
[2021-05-06] MEDS: SENNA/DOCUSATE TABLET PO SCH (09:11)
[2021-05-06 12:13] VITALS: BP 113/68
[2021-05-06] MEDS ORDERED: CALC0.25 PO (15:14)
[2021-05-06] MEDS ORDERED: ERGO500017 PO (15:14)
[2021-05-06] MEDS ORDERED: CALC667C PO (15:14)
== END 2021-05-06 18:35 | disposition home or self-care (01) | DRG 710 ==
LOC: ED 01:54 → EDIP 03:38 → CCU 04:42 → 4EST 04-16 01:04
PROVIDERS: ADMIT Family Medicine; ATTEND Internal Medicine
PROC: 0T9B70Z Drainage of Bladder with Drainage Device, Via Natural or Artificial Opening (ICD-10-PCS; 2021-04-15)
PROC: 30233N1 Transfusion of Nonautologous Red Blood Cells into Peripheral Vein, Percutaneous Approach (ICD-10-PCS; 2021-04-15)
PROC: 5A1D70Z Performance of Urinary Filtration, Intermittent, Less than 6 Hours Per Day (ICD-10-PCS; 2021-04-15)
PROC: B54BZZA Ultrasonography of Right Lower Extremity Veins, Guidance (ICD-10-PCS; 2021-04-15)
PROC: 06HY33Z Insertion of Infusion Device into Lower Vein, Percutaneous Approach (ICD-10-PCS; 2021-04-15)
PROC: 0T9130Z Drainage of Left Kidney with Drainage Device, Percutaneous Approach (ICD-10-PCS; 2021-04-15)
PROC: 0T9030Z Drainage of Right Kidney with Drainage Device, Percutaneous Approach (ICD-10-PCS; 2021-04-15)
PROC: 5A1D70Z Performance of Urinary Filtration, Intermittent, Less than 6 Hours Per Day (ICD-10-PCS; 2021-04-16)
PROC: 5A1D70Z Performance of Urinary Filtration, Intermittent, Less than 6 Hours Per Day (ICD-10-PCS; 2021-04-18)
PROC: 5A1D70Z Performance of Urinary Filtration, Intermittent, Less than 6 Hours Per Day (ICD-10-PCS; 2021-04-20)
PROC: 5A1D70Z Performance of Urinary Filtration, Intermittent, Less than 6 Hours Per Day (ICD-10-PCS; 2021-04-21)
PROC: 0JH63XZ Insertion of Tunneled Vascular Access Device into Chest Subcutaneous Tissue and Fascia, Percutaneous Approach (ICD-10-PCS; 2021-04-21)
PROC: 02HV33Z Insertion of Infusion Device into Superior Vena Cava, Percutaneous Approach (ICD-10-PCS; 2021-04-21)
PROC: B5181ZA Fluoroscopy of Superior Vena Cava using Low Osmolar Contrast, Guidance (ICD-10-PCS; 2021-04-21)
PROC: B548ZZA Ultrasonography of Superior Vena Cava, Guidance (ICD-10-PCS; 2021-04-21)
PROC: 5A1D70Z Performance of Urinary Filtration, Intermittent, Less than 6 Hours Per Day (ICD-10-PCS; 2021-04-22)
PROC: BT141ZZ Fluoroscopy of Kidneys, Ureters and Bladder using Low Osmolar Contrast (ICD-10-PCS; 2021-04-23)
PROC: 0T778DZ Dilation of Left Ureter with Intraluminal Device, Via Natural or Artificial Opening Endoscopic (ICD-10-PCS; 2021-04-23)
PROC: 0TBB8ZZ Excision of Bladder, Via Natural or Artificial Opening Endoscopic (ICD-10-PCS; principal; 2021-04-23 08:30)
PROC: 5A1D70Z Performance of Urinary Filtration, Intermittent, Less than 6 Hours Per Day (ICD-10-PCS; 2021-04-25)
PROC: 5A1D70Z Performance of Urinary Filtration, Intermittent, Less than 6 Hours Per Day (ICD-10-PCS; 2021-04-27)
PROC: 0TP5X0Z Removal of Drainage Device from Kidney, External Approach (ICD-10-PCS; 2021-04-28)
DX: A41.9 Sepsis, unspecified organism (principal); N17.9 Acute kidney failure, unspecified; D62 Acute posthemorrhagic anemia; E83.42 Hypomagnesemia; E83.51 Hypocalcemia; E87.1 Hypo-osmolality and hyponatremia; Z20.822 Contact with and (suspected) exposure to COVID-19; D50.9 Iron deficiency anemia, unspecified; D53.9 Nutritional anemia, unspecified; E87.5 Hyperkalemia; E87.6 Hypokalemia; K56.7 Ileus, unspecified; K80.20 Calculus of gallbladder without cholecystitis without obstruction; N13.6 Pyonephrosis; N18.9 Chronic kidney disease, unspecified; N25.0 Renal osteodystrophy; D63.1 Anemia in chronic kidney disease; N32.0 Bladder-neck obstruction; N40.1 Benign prostatic hyperplasia with lower urinary tract symptoms; R33.8 Other retention of urine; R65.20 Severe sepsis without septic shock; I95.1 Orthostatic hypotension; R73.9 Hyperglycemia, unspecified; Z87.891 Personal history of nicotine dependence; Z79.899 Other long term (current) drug therapy
CPT/HCPCS: 36415; 36556; 36600; 50432; 74018; 74420; 84145; 96361; 96374; 96375; 99291; 99292; J3490; 36430; 36558; 50389; 70551; 71045; 74176; 76770; 76937; 76942; 80048; 80053; 80069; 80074; 81001; 82306; 82436; 82550; 82570; 82607; 82728; 82803; 82962; 83036; 83540; 83550; 83605; 83735; 83880; 83970; 84100; 84133; 84300; 84436; 84443; 84484; 85025; 85027; 86317; 86480; 86705; 86706; 86850; 86900; 86923; 87040; 87081; 87086; 87340; 87635; 88305; 90935; 93005; 93306; 99156; 99157; G0378; J0690; J0696; J1815; J2250; J2405; J2704; J3010; J3480; J7070; P9047; Q9967; C1729; C1750; C1769; C2617; J1642; J2270; J2310; J3475; J7030; J7050; P9016